=== PATIENT | female | born 1965 | race Caucasian/White ===

== ENCOUNTER 2022-10-13 17:39 | Emergency (ER) | payer MEDICAID ==
[~2022-10-13] VITALS: Ht 157.5 cm; Wt 65.0 kg
[~2022-10-13 17:39] MED LIST: KETO10TA2 PO
[2022-10-13 17:54] VITALS: BP 145/49
[2022-10-13] MEDS ORDERED: CEPH250T PO (18:59)
[2022-10-13] MEDS ORDERED: TRAM50TA2 PO (18:59)
[2022-10-13] MEDS ORDERED: NAPR-56 PO (18:59)
[2022-10-13] MEDS ORDERED: cephalexin 250mg capsule PO ONE (19:00)
[2022-10-13] MEDS ORDERED: HYDROcodone/acetaminophen 5mg/325mg tablet PO ONE (19:00)
== END 2022-10-13 19:25 | disposition home or self-care (01) ==
LOC: ER 17:40
DX: K04.7 Periapical abscess without sinus (principal); G43.909 Migraine, unspecified, not intractable, without status migrainosus; Z88.5 Allergy status to narcotic agent; Z79.899 Other long term (current) drug therapy
CPT/HCPCS: 99283